=== PATIENT | female | born 1970 | race Caucasian/White ===

== ENCOUNTER 2018-01-10 10:00 | Emergency (ER) | payer MEDICAID ==
[2018-01-10] MEDS ORDERED: Albuterol/Ipratropium Neb 3 ML AERS HHN ONE (10:09)
[2018-01-10] MEDS ORDERED: Magnesium Sulfate 1 gm/2 mL 2mL Vial IV ONE (10:16)
[2018-01-10 10:23] LABS: HEMOGLOBIN 15.1 gm/dL (12-16); MEAN CELL VOLUME 85.1 fl (81-100); MEAN CORPUSCULAR HEMOGLOBIN 28.6 pg (27.0-31.0); MEAN CORPUSCULAR HGB CONC 33.6 pg (28.0-36.0); MEAN PLATELET VOLUME 7.2 fl; PLATELET COUNT 342 Th/cmm (150-400); RED BLOOD COUNT 5.29 Mil/cmm (3.80-5.10); RED CELL DISTRIBUTION WIDTH 12.1 % (11.5-20.0); WHITE BLOOD COUNT 8.7 Th/cmm (4.8-10.8)
[2018-01-10 10:40] LABS: ALB/GLOB RATIO 1.6 (1.0-1.8); ALBUMIN 4.5 gm/dL (3.7-5.3); ALKALINE PHOSPHATASE 73 U/L (34-104); ANION GAP 14.9 (7.0-16.0); BILIRUBIN,TOTAL 1.1 mg/dL (0.3-1.0); BUN - UREA NITROGEN 12 mg/dL (7-25); CALCIUM SERUM 9.9 mg/dL (8.6-10.3); CARBON DIOXIDE 23.8 mEq/L (21.0-31.0); CHLORIDE 102 mEq/L (98-107); CREATININE - SERUM 0.6 mg/dL (0.6-1.2); GFR AFRICAN-AMERICAN > 60.0 ml/min (>90); GFR NON AFRICAN-AMERICAN > 60.0 ml/min; GLUCOSE 134 mg/dL (70-105); MAGNESIUM 1.9 mg/dL (1.9-2.7); PHOSPHOROUS 1.6 mg/dL (2.5-5.0); POTASSIUM SERUM 3.7 mEq/L (3.5-5.1); SGOT 30 U/L (13-39); SGPT/ALT 46 U/L (7-52); SODIUM SERUM 137 mEq/L (136-145); TOTAL PROTEIN,SERUM 7.4 gm/dL (6.0-8.3)
[2018-01-10 11:06] LABS: BAND NEUTROPHILE 1 % (0-10); LYMPHOCYTE 40 % (20-50); MONOCYTE 6 % (2-10); NEUTROPHILS 50 % (40-80)
[2018-01-10 11:07] LABS: EOSINOPHIL 3 % (0-5)
[2018-01-10 11:51] LABS: AMPHETAMINE URINE NEGATIVE (NEGATIVE); BARBITURATES URINE NEGATIVE (NEGATIVE); BENZODIAZEPINES QUAL URINE POSITIVE (NEGATIVE); CANNABINOID THC NEGATIVE (NEGATIVE); COCAINE METABOLITE QUAL URINE NEGATIVE (NEGATIVE); METHADONE URINE NEGATIVE (NEGATIVE); METHAMPHETAMINES QUAL URINE NEGATIVE (NEGATIVE); OPIATES (MORPHINE) QUAL. URINE NEGATIVE (NEGATIVE); PHENCYCLIDINE (PCP) URINE NEGATIVE (NEGATIVE); TRICYCLICS (TCA) QUAL. URINE NEGATIVE (NEGATIVE)
--- NOTE | 2018-01-10 12:22 | Diagnostic Imaging Report ---
CHEST X-RAY: AP view INDICATION: Shortness of breath COMPARISON: None FINDINGS: Mild increased interstitial lung markings are noted. There is no focal consolidation or pleural effusions The heart is normal in size. The osseous structures demonstrate no acute abnormalities. IMPRESSION: Mild increased interstitial lung markings. No focal consolidation identified.
== END 2018-01-10 12:25 | disposition home or self-care (01) ==
LOC: ER 10:00
DX: R06.00 Dyspnea, unspecified (principal); R05 Cough; R51 Headache; R20.2 Paresthesia of skin; J45.909 Unspecified asthma, uncomplicated; F41.9 Anxiety disorder, unspecified
CPT/HCPCS: 99285; 96365; 96375; 94640; 71045; 36415; 36416; 82948; 80307; 85007; 85025; 83735; 84100; 80053; J2930; J3475

== ENCOUNTER 2018-03-14 08:57 | Emergency (ER) | payer MEDICAID ==
[2018-03-14] MEDS ORDERED: Lactated Ringer 1,000 ML IV ONE (09:30)
[2018-03-14 09:45] LABS: % BASOPHILS 0.7 % (0.0-2.0); % EOSINOPHILS 8.6 % (0.0-5.0); % LYMPHOCYTES 32.8 % (20.0-50.0); % MONOCYTES 6.2 % (2.0-10.0); % NEUTROPHILS 51.7 % (40.0-80.0); EOSINOPHILE ABSOLUTE 0.6 Th/cmm (0.1-0.4); HEMOGLOBIN 14.6 gm/dL (12-16); LYMPHOCYTE ABSOLUTE 2.3 Th/cmm (1.5-3.0); MEAN CELL VOLUME 86.1 fl (81-100); MEAN CORPUSCULAR HEMOGLOBIN 28.5 pg (27.0-31.0); MEAN CORPUSCULAR HGB CONC 33.2 pg (28.0-36.0); MEAN PLATELET VOLUME 7.1 fl; MONOCYTE ABSOLUTE 0.4 Th/cmm (0.3-1.0); NEUTROPHILE ABSOLUTE 3.6 Th/cmm (1.8-8.0); PLATELET COUNT 296 Th/cmm (150-400); RED BLOOD COUNT 5.11 Mil/cmm (3.80-5.10); RED CELL DISTRIBUTION WIDTH 12.1 % (11.5-20.0); WHITE BLOOD COUNT 6.9 Th/cmm (4.8-10.8)
[2018-03-14 10:01] LABS: ALB/GLOB RATIO 1.3 (1.0-1.8); ALBUMIN 4.2 gm/dL (3.7-5.3); ALKALINE PHOSPHATASE 59 U/L (34-104); AMYLASE SERUM 48 U/L (29-103); BUN - UREA NITROGEN 11 mg/dL (7-25); CALCIUM SERUM 9.4 mg/dL (8.6-10.3); CARBON DIOXIDE 23.6 mEq/L (21.0-31.0); CHLORIDE 104 mEq/L (98-107); CREATININE - SERUM 0.5 mg/dL (0.6-1.2); GFR AFRICAN-AMERICAN > 60.0 ml/min (>90); GFR NON AFRICAN-AMERICAN > 60.0 ml/min; GLUCOSE 186 mg/dL (70-105); LIPASE 14 U/L (11-82); MAGNESIUM 1.8 mg/dL (1.9-2.7); POTASSIUM SERUM 3.6 mEq/L (3.5-5.1); SGOT 40 U/L (13-39); SGPT/ALT 71 U/L (7-52); SODIUM SERUM 137 mEq/L (136-145); TOTAL PROTEIN,SERUM 7.4 gm/dL (6.0-8.3)
[2018-03-14 10:35] LABS: URINE SOURCE CLEAN C
[2018-03-14 10:41] LABS: URINE BILIRUBIN NEGATIVE (NEGATIVE); URINE BLOOD NEGATIVE (NEGATIVE); URINE GLUCOSE (UA) NEGATIVE (NEGATIVE); URINE KETONE NEGATIVE (NEGATIVE); URINE LEUKOCYTE ESTERASE SMALL (NEGATIVE); URINE NITRATE NEGATIVE (NEGATIVE); URINE PH 5.5 (4.6 - 8.0); URINE PROTEIN NEGATIVE (NEGATIVE); URINE UROBILINOGEN 0.2 E.U./dL (0.2 - 1.0)
[2018-03-14 10:47] LABS: URINE CLARITY HAZY (CLEAR); URINE COLOR YELLOW; URINE MICROSCOPIC INDICATED? YES
[2018-03-14 10:49] LABS: URINE BACTERIA FEW /hpf (NONE SEEN); URINE EPITHELIAL CELLS FEW /lpf (FEW); URINE RBC NONE SEEN /hpf (0-5)
[2018-03-14 10:50] LABS: AMPHETAMINE URINE NEGATIVE (NEGATIVE); BARBITURATES URINE NEGATIVE (NEGATIVE); BENZODIAZEPINES QUAL URINE POSITIVE (NEGATIVE); PHENCYCLIDINE (PCP) URINE NEGATIVE (NEGATIVE)
[2018-03-14 10:51] LABS: CANNABINOID THC NEGATIVE (NEGATIVE); COCAINE METABOLITE QUAL URINE NEGATIVE (NEGATIVE); METHADONE URINE NEGATIVE (NEGATIVE); METHAMPHETAMINES QUAL URINE NEGATIVE (NEGATIVE); OPIATES (MORPHINE) QUAL. URINE NEGATIVE (NEGATIVE); TRICYCLICS (TCA) QUAL. URINE NEGATIVE (NEGATIVE)
--- NOTE | 2018-03-14 11:33 | Diagnostic Imaging Report ---
Abdominal series (3 views) HISTORY: Pain There is a nonspecific gas pattern of nondilated bowel. Surgical clips are seen within the right upper quadrant consistent with a prior cholecystectomy. No free intraperitoneal air. A subtle 3 mm calcification projects over the right abdomen. Exact location uncertain. The finding should be correlated clinically. IMPRESSION: 1. Nonspecific bowel gas pattern. 2. Surgical clips within the right upper quadrant consistent with a prior cholecystectomy 3. Questionable subtle 3 mm calcification over the right abdomen. Significance uncertain. Urinary tract calculus cannot be excluded. Clinical correlation is needed.
--- NOTE | 2018-03-14 12:30 | Diagnostic Imaging Report ---
Abdominal ultrasound HISTORY: Pain The liver appears enlarged. No focal lesions are seen. No appreciable ascites. The gallbladder is not seen consistent with patient's surgical history. Common bile duct cannot be clearly outlined. Pancreas is not well seen due to bowel gas. The right kidney is generous in size (13.0 x 4.5 x 5.7 cm). No focal lesions. No hydronephrosis. The left kidney is also increased in size (14.8 x 6.4 x 5.8 cm). No focal lesions or hydronephrosis. The spleen appears normal in size. No other retroperitoneal or intra-abdominal abnormalities. IMPRESSION: 1. Limited exam due to bowel gas 2. Hepatomegaly along with parenchymal changes that may reflect fatty infiltration. The findings should be correlated with liver function tests 3. Nonvisualization of the gallbladder consistent with the patient's surgical history 4. Increased renal size is bilaterally. Significance should be correlated with renal function tests.
[2018-03-15 10:16] LABS: HEP A AB IGM Negative (Negative); HEP B CORE IGM Negative (Negative); HEP B SURFACE AG QL Negative (Negative); HEP C ANTIBODY <0.1 s/co ratio (0.0-0.9)
--- NOTE | 2018-03-22 10:34 | ED Physician Chart ---
ED Chief Complaint/HPI - Patient Information Date Seen:: 03/14/18 Time Seen:: 09:18 Chief Complaint:: RUQ pain History of Present Illness:: 910 sharp RUQ pain which started this morning. No nausea/vomiting. No dysuria. Allergies:: Allergies Allergy/AdvReac Type Severity Reaction Status Date / Time No Known Allergies Allergy Verified 03/14/18 09:15 Review:: Nurse's Note Reviewed ED Review of Systems - Review of Systems General/Constitutional: No fever, No chills, No weight loss, No weakness, No diaphoresis, No edema, No loss of appetite Skin: No skin lesions, No rash, No bruising Head: No headache, No light-headedness Eyes: No loss of vision, No pain, No diplopia ENT: No earache, No nasal drainage, No sore throat, No tinnitus Neck: No neck pain, No swelling, No thyromegaly, No stiffness, No mass noted Cardio Vascular: No chest pain, No palpitations, No PND, No orthopnea, No edema Pulmonary: No SOB, No cough, No sputum, No wheezing GI: No nausea, No vomiting, No diarrhea, Pain, No melena, No hematochezia, No constipation, No hematemesis G/U: No dysuria, No frequency, No hematuria Musculoskeletal: No bone or joint pain, No back pain, No muscle pain Endocrine: No polyuria, No polydipsia Psychiatric: No prior psych history, No depression, No anxiety, No suicidal ideation Hematopoietic: No bruising, No lymphadenopathy Allergic/Immuno: No urticaria, No angioedema Neurological: No syncope, No focal symptoms, No weakness, No paresthesia, No headache, No seizure, No dizziness, No confusion, No vertigo ED Past Medical History - Past Medical History Obtainable: Yes Past Medical History: Asthma/COPD, Other (fatty liver for 10 years) Social History: Other (parts counterman Alprazolam use) Family Medical History - Family Member Mother History Unknown: Yes ED Physical Exam - Physical Examination General/Constitutional: Awake, Well-developed, well-nourished, Alert, GCS 15, Non-toxic appearing, Ambulatory Other Gen/Cons comments:: with RUQ pain Head: Atraumatic Eyes: Lids, conjuctiva normal, PERRL, EOMI Skin: Nl inspection, No rash, No skin lesions, No ecchymosis, Well hydrated, No lymphadenopathy ENMT: External ears, nose nl, Nasal exam nl, Lips, teeth, gums nl Neck: Nontender, Full ROM w/o pain, No nuchal rigidity, No bruit, No mass, No stridor Respiratory: Nl effort/Exclusion, Clear to Auscultation, No Wheeze/Rhonchi/Rales Cardio Vascular: RRR, No murmur, gallop, rubs, NL S1 S2 GI: No hernia, Normal BS's Other GI comments:: no peritoneal signs Pain to palpation in the RUQ. No masses palpated. slightly bloated appearing. No flluid waves. : No CVA tenderness Extremities: No tenderness or effusion, Full ROM, normal strength in all extremities, No edema, Normal digits & nails Neuro/Psych: Alert/oriented, Normal sensory exam, Normal motor strength, Judgement/insight normal, Mood normal, Normal gait, No focal deficits Misc: Normal back, No paraspinal tenderness ED Labs/Radiology/EKG Results - Lab Results Results: Laboratory Tests 03/14/18 03/14/18 03/14/18 09:16 09:16 09:38 WBC 6.9 RBC 5.11 H Hgb 14.6 Hct 44.0 MCV 86.1 MCH 28.5 MCHC Differential 33.2 RDW 12.1 Plt Count 296 MPV 7.1 Neutrophils % 51.7 Lymphocytes % 32.8 Monocytes % 6.2 Eosinophils % 8.6 H Basophils % 0.7 Sodium Potassium Chloride Carbon Dioxide Anion Gap BUN Creatinine Est GFR ( Amer) Est GFR (Non-Af Amer) BUN/Creatinine Ratio Glucose Calcium Phosphorus Magnesium Total Bilirubin AST ALT Alkaline Phosphatase Total Protein Albumin Globulin Albumin/Globulin Ratio Amylase Lipase Urine Source CLEAN C Urine Color YELLOW Urine Clarity HAZY Urine pH 5.5 Ur Specific [place] 1.025 Urine Protein NEGATIVE Urine Glucose (UA) NEGATIVE Urine Ketones NEGATIVE Urine Blood NEGATIVE Urine Nitrate NEGATIVE Urine Bilirubin NEGATIVE Urine Urobilinogen 0.2 Ur Leukocyte Esterase SMALL H Urine RBC NONE SEEN Urine WBC 2-5 Ur Epithelial Cells FEW Urine Bacteria FEW Urine Opiates Screen NEGATIVE Urine Methadone Screen NEGATIVE Ur Barbiturates Screen NEGATIVE Ur Tricyclics Screen NEGATIVE Ur Phencyclidine Scrn NEGATIVE Amphetamines Screen NEGATIVE U Methamphetamines Scrn NEGATIVE U Benzodiazepines Scrn POSITIVE H U Cocaine Metab Screen NEGATIVE U Cannabinoids Screen NEGATIVE Hepatitis A IgM Ab Hep Bs Antigen Hep B Core IgM Ab Hepatitis C Antibody 03/14/18 03/14/18 09:38 09:38 WBC RBC Hgb Hct MCV MCH MCHC Differential RDW Plt Count MPV Neutrophils % Lymphocytes % Monocytes % Eosinophils % Basophils % Sodium 137 Potassium 3.6 Chloride 104 Carbon Dioxide 23.6 Anion Gap 13.0 BUN 11 Creatinine 0.5 L Est GFR ( Amer) > 60.0 Est GFR (Non-Af Amer) > 60.0 BUN/Creatinine Ratio 22.0 Glucose 186 H Calcium 9.4 Phosphorus 3.0 Magnesium 1.8 L Total Bilirubin 1.0 AST 40 H ALT 71 H Alkaline Phosphatase 59 Total Protein 7.4 Albumin 4.2 Globulin 3.2 Albumin/Globulin Ratio 1.3 Amylase 48 Lipase 14 Urine Source Urine Color Urine Clarity Urine pH Ur Specific [place] Urine Protein Urine Glucose (UA) Urine Ketones Urine Blood Urine Nitrate Urine Bilirubin Urine Urobilinogen Ur Leukocyte Esterase Urine RBC Urine WBC Ur Epithelial Cells Urine Bacteria Urine Opiates Screen Urine Methadone Screen Ur Barbiturates Screen Ur Tricyclics Screen Ur Phencyclidine Scrn Amphetamines Screen U Methamphetamines Scrn U Benzodiazepines Scrn U Cocaine Metab Screen U Cannabinoids Screen Hepatitis A IgM Ab Negative Hep Bs Antigen Negative Hep B Core IgM Ab Negative Hepatitis C Antibody <0.1 ED Assessment - Assessment General Assessment: Acute abdominal series: read by me: no free air. Very enlarged liver below the costal margin. Phlebolith on right. Ultrasound reading by train control technician: enlarged liver and kidneys will check hepatitis panel since patient never checked for this. ED Septic Shock - . Is Septic Shock (SBP<90, OR Lactate>4 mmol\L) present?: No ED Reassessment (Disposition) - Reassessment Reassessment Condition:: Improved - Diagnosis Diagnosis:: Enlarged liver with elevated liver function tests. Further workup with PCP. Enlarged kidneys Contaminated urine versus early UTI. - Aftercare/Follow up Instructions Aftercare/Follow-Up Instructions:: Refer to Discharge Instructions Notes:: referral given to grounds and nursery specialist and urologist. follow up with PCP for any other referrals No tylenol or alcohol. No alprazolam. Medication Prescribed:: Bactrim for early UTI. - Patient Disposition Discharge/Transfer:: Home Condition at Disposition:: Stable, Improved
== END 2018-03-14 12:45 | disposition home or self-care (01) ==
LOC: ER 08:57
DX: R16.0 Hepatomegaly, not elsewhere classified (principal); N28.81 Hypertrophy of kidney; N39.0 Urinary tract infection, site not specified; R94.5 Abnormal results of liver function studies; J44.9 Chronic obstructive pulmonary disease, unspecified
CPT/HCPCS: 99284; 96374; 74019; 76700; 36415; 80307; 80074; 85025; 81001; 82150; 83036; 83690; 83735; 84100; 80053; J1885; Z7502

== ENCOUNTER 2018-10-30 16:41 | Emergency (ER) | payer MEDICAID ==
--- NOTE | 2018-10-30 17:02 | ED Physician Chart ---
ED Chief Complaint/HPI - Patient Information Date Seen:: 10/30/18 Time Seen:: 16:58 Chief Complaint:: ear ache History of Present Illness:: 47 yr old female with multiple medical problems here for lt ear ache had amox but still having pain Allergies:: Allergies Allergy/AdvReac Type Severity Reaction Status Date / Time No Known Allergies Allergy Verified 03/14/18 09:15 ED Review of Systems - Review of Systems General/Constitutional: No fever Skin: No skin lesions Head: No headache, No light-headedness Eyes: No loss of vision, No pain, No diplopia ENT: No earache, No nasal drainage, No sore throat, No tinnitus Neck: No neck pain, No swelling, No thyromegaly, No stiffness, No mass noted Cardio Vascular: No chest pain, No palpitations, No PND, No orthopnea, No edema Pulmonary: No SOB, No cough, No sputum, No wheezing GI: No nausea, No vomiting, No diarrhea, No pain, No melena, No hematochezia, No constipation, No hematemesis G/U: No dysuria, No frequency, No hematuria Musculoskeletal: No bone or joint pain, No back pain, No muscle pain Endocrine: No polyuria, No polydipsia Psychiatric: No prior psych history, No depression, No anxiety, No suicidal ideation Hematopoietic: No bruising, No lymphadenopathy Allergic/Immuno: No urticaria, No angioedema Neurological: No syncope, No focal symptoms, No weakness, No paresthesia, No headache, No seizure, No dizziness, No confusion, No vertigo ED Past Medical History - Past Medical History Past Medical History: HTN, DM Family Medical History - Family Member Mother History Unknown: Yes ED Physical Exam - Physical Examination General/Constitutional: Awake, Well-developed, well-nourished, Alert, No distress, GCS 15, Non-toxic appearing, Ambulatory Head: Atraumatic Eyes: Lids, conjuctiva normal, PERRL, EOMI Skin: Nl inspection, No rash, No skin lesions, No ecchymosis, Well hydrated, No lymphadenopathy ENMT: External ears, nose nl, Nasal exam nl, Lips, teeth, gums nl Neck: Nontender, Full ROM w/o pain, No JVD, No nuchal rigidity, No bruit, No mass, No stridor Respiratory: Nl effort/Exclusion, Clear to Auscultation, No Wheeze/Rhonchi/Rales Cardio Vascular: RRR, No murmur, gallop, rubs, NL S1 S2 GI: No tenderness/rebounding/guarding, No organomegaly, No hernia, Normal BS's, Nondistended, No mass/bruits, No McBurney tenderness : No CVA tenderness Extremities: No tenderness or effusion, Full ROM, normal strength in all extremities, No edema, Normal digits & nails Neuro/Psych: Alert/oriented, DTR's symmetric, Normal sensory exam, Normal motor strength, Judgement/insight normal, Mood normal, Normal gait, No focal deficits Misc: Normal back, No paraspinal tenderness ED Assessment - Assessment General Assessment: otalgia hx of om lt ED Septic Shock - . Is Septic Shock (SBP<90, OR Lactate>4 mmol\L) present?: No ED Reassessment (Disposition) - Reassessment Reassessment:: otalgia - Diagnosis Diagnosis:: as above lt - Aftercare/Follow up Instructions Aftercare/Follow-Up Instructions:: Counseled pt regarding lab results/diagnosis & need follow up - Patient Disposition Discharge/Transfer:: Home Condition at Disposition:: Stable
== END 2018-10-30 18:01 | disposition home or self-care (01) ==
LOC: ER 16:41
DX: H92.02 Otalgia, left ear (principal); E11.9 Type 2 diabetes mellitus without complications; I10 Essential (primary) hypertension
CPT/HCPCS: 99283; 96372 ×2; J1885; J0696; J2001; Z7502